=== PATIENT | female | born 1990 | race Hispanic/Latino ===

== ENCOUNTER 2019-01-28 12:07 | Emergency (ER) | payer MEDICAID ==
--- NOTE | 2019-01-28 12:56 | Emergency Department Report ---
Blank Doc - Documentation Documentation: This is a 28-year-old female that presents with chest pain that describes it as a burning sensation. Stated is in the midsternum area. Denies any SOB or radiation. This initial assessment diagnostic orders/clinical plan/treatment(s) is/are subject to change based on patient's health status, clinical progression and re- assessment by fellow clinical providers in the ED. Further treatment and workup at subsequent clinical providers discretion. Patient/guardians urged not to elope from ED s their condition may be serious if not clinically assessed and managed. Initial orders include: 1-patient sent to [facility] for further evaluation and treatment. 2- EKG
[2019-01-28 12:58] VITALS: BP 126/75
--- NOTE | 2019-01-28 16:01 | Emergency Department Report ---
ED Psych HPI - General Chief Complaint: Dyspnea/Respdistress Stated Complaint: ANXIETY Time Seen by Provider: 01/28/19 12:55 Source: patient Mode of arrival: Ambulatory - History of Present Illness Initial Comments: 28-year-old female with history of anxiety who presents to the ED with complaint of anxiety attack. Patient states she experience chest pain, palpitations, shortness of breath, paresthesias. Symptoms now resolved. MD Complaint: other (anxiety) -: This morning History of same: Yes Quality: other (now resolved) Improves With: none Worsens With: none Associated Symptoms: shortness of breath, nausea Treatments Prior to Arrival: none - Related Data Previous Rx's Medication Instructions Recorded Last Taken Type LORazepam [Ativan] 1 mg PO QDAY PRN #3 tab 01/28/19 Unknown Rx Allergies Allergy/AdvReac Type Severity Reaction Status Date / Time No Known Allergies Allergy Verified 01/28/19 12:17 ED Review of Systems ROS: Stated complaint: ANXIETY Other details as noted in HPI Comment: All other systems reviewed and negative Respiratory: shortness of breath Cardiovascular: chest pain, palpitations Gastrointestinal: nausea Neurological: paresthesias Psychiatric: anxiety. denies: auditory hallucinations, visual hallucinations, homicidal thoughts, suicidal thoughts ED Past Medical Hx - Past Medical History Previous Medical History?: Yes Additional medical history: PCOS - Surgical History Past Surgical History?: No - Social History Smoking Status: Current Every Day Smoker Substance Use Type: Alcohol - Medications Home Medications: Home Medications Medication Instructions Recorded Confirmed Last Taken Type LORazepam [Ativan] 1 mg PO QDAY PRN #3 tab 01/28/19 Unknown Rx ED Physical Exam - General Limitations: No Limitations General appearance: alert, in no apparent distress - Head Head exam: Present: atraumatic, normocephalic - Eye Eye exam: Present: normal appearance - ENT ENT exam: Present: mucous membranes moist - Neck Neck exam: Present: normal inspection - Respiratory Respiratory exam: Present: normal lung sounds bilaterally. Absent: respiratory distress - Cardiovascular Cardiovascular Exam: Present: regular rate, normal rhythm - GI/Abdominal GI/Abdominal exam: Present: soft. Absent: distended - Extremities Exam Extremities exam: Present: normal inspection - Neurological Exam Neurological exam: Present: alert, oriented X3, CN II-XII intact. Absent: motor sensory deficit - Psychiatric Psychiatric exam: Present: normal affect, normal mood - Skin Skin exam: Present: warm, dry, intact, normal color. Absent: rash ED Course Vital Signs 01/28/19 12:55 Temperature 98.1 F Pulse Rate 102 H Respiratory 20 Rate Blood Pressure 126/75 O2 Sat by Pulse 99 Oximetry ED Medical Decision Making - EKG Data -: EKG Interpreted by Me EKG shows normal: sinus rhythm, axis, intervals, QRS complexes, ST-T waves Rate: normal - EKG Data Interpretation: no acute changes - Differential Diagnosis anxiety Critical care attestation.: If time is entered above; I have spent that time in minutes in the direct care of this critically ill patient, excluding procedure time. ED Disposition Clinical Impression: Anxiety Disposition: DC-01 TO HOME OR SELFCARE Is pt being admited?: No Condition: Stable Instructions: Anxiety (ED) Prescriptions: LORazepam [Ativan] 1 mg PO QDAY PRN #3 tab PRN Reason: Anxiety Referrals: EDER GOMEZ MD [Primary Care Provider] - 3-5 Days Time of Disposition: 16:00
== END 2019-01-28 16:06 | disposition home or self-care (01) ==
LOC: ED 12:07
DX: F41.9 Anxiety disorder, unspecified (principal); E28.2 Polycystic ovarian syndrome; F17.200 Nicotine dependence, unspecified, uncomplicated
CPT/HCPCS: 93005; 93010; 99282

== ENCOUNTER 2022-07-27 10:56 | Inpatient (IN) | payer MEDICAID ==
--- NOTE | 2022-07-27 11:23 | Emergency Department Report ---
ED General Adult HPI - General Chief complaint: Neuro Symptoms/Deficit Stated complaint: POSSIBLE CVA Time Seen by Provider: 07/27/22 11:13 Source: patient, EMS Mode of arrival: Stretcher Limitations: No Limitations - History of Present Illness Initial comments: 31-year-old female denies medical history or surgical history came in today by EMS with concerns of complete right-sided facial numbness that radiates down to her right arm started at 9:15 to 9:20 while patient was driving. States she went to her doctor's appointment today and s/he instructed her to come to the ER immediately. Patient denies any other symptoms. Patient denies fever chill night sweat dizziness blurred vision lightheadedness headache tinnitus ear pain runny nose sore throat loss of taste or smell chest pain palpitation short of breath cough abdominal pain nausea vomiting diarrhea constipation joint pain muscle pain new rash and heat or cold intolerance. Patient is a smoker. - Related Data Previous Rx's Medication Instructions Recorded Last Taken Type LORazepam [Ativan] 1 mg PO QDAY PRN #3 tab 01/28/19 Unknown Rx Allergies Allergy/AdvReac Type Severity Reaction Status Date / Time No Known Allergies Allergy Verified 07/27/22 11:13 ED Review of Systems ROS: Stated complaint: POSSIBLE CVA Other details as noted in HPI Comment: All other systems reviewed and negative Constitutional: no symptoms reported, see HPI Eyes: as per HPI ENT: as per HPI Respiratory: no symptoms reported Cardiovascular: as per HPI Endocrine: no symptoms reported, see HPI Gastrointestinal: as per HPI Genitourinary: as per HPI Musculoskeletal: as per HPI Skin: as per HPI Neurological: numbness (Complete right facial upper and lower as well as right upper extremity numbness) Hematological/Lymphatic: as per HPI ED Past Medical Hx - Past Medical History Previous Medical History?: No Additional medical history: PCOS - Social History Smoking Status: Current Every Day Smoker Substance Use Type: Alcohol - Medications Home Medications: Home Medications Medication Instructions Recorded Confirmed Last Taken Type LORazepam [Ativan] 1 mg PO QDAY PRN #3 tab 01/28/19 Unknown Rx ED Physical Exam - General Limitations: No Limitations, Other (mentation somewhat foggy/slow) General appearance: alert, in no apparent distress - Head Head exam: Present: atraumatic, normocephalic, normal inspection - Eye Eye exam: Present: normal appearance, PERRL, EOMI Pupils: Present: normal accommodation - ENT ENT exam: Present: normal exam, mucous membranes moist - Neck Neck exam: Present: normal inspection, full ROM - Respiratory Respiratory exam: Present: normal lung sounds bilaterally - Cardiovascular Cardiovascular Exam: Present: regular rate, normal rhythm - GI/Abdominal GI/Abdominal exam: Present: soft - Extremities Exam Extremities exam: Present: normal inspection, full ROM, normal capillary refill - Back Exam Back exam: Present: normal inspection, full ROM - Neurological Exam Neurological exam: Present: alert, oriented X3, CN II-XII intact - Psychiatric Psychiatric exam: Present: normal affect, normal mood - Skin Skin exam: Present: warm, normal color ED Course Vital Signs 07/27/22 11:10 Temperature 98.6 F Pulse Rate 84 Respiratory 14 Rate Blood Pressure 140/92 [Left] O2 Sat by Pulse 98 Oximetry - Reevaluation(s) Reevaluation #1: 07/27/22 12:24 # Assessment Impression: Cognitive fogginess with right face/ arm paresthesia - stroke versus seizure versus migraine aura (acephalgic migraine) # Plan Thrombolytic/Intervention: NOT IV Thrombolysis or IA Intervention candidate Thrombolytic Exclusion (< 3 hour window): family/ patient refusal non-disabling deficit Thrombolytic Exclusion: After discussing the risks & benefits, the patient elected not to pursue thrombolytic therapy. Target Blood Pressure: SBP < 220 Labs: CBC comprehensive metabolic panel ESR hemoglobin A1c lipid panel troponin TSH urine drug screen ua Imaging: (urgency: STAT): CT Angiogram Head and CT Angiogram Neck AND call back with results if abnormal Imaging: (urgency: routine): MRI Brain without contrast Diagnostic Test: echo without bubble study Therapy/Evaluation: NPO until swallow evaluation PT/OT evaluation Medication: Would defer starting medication (aspirin & statin) pending diagnostic results. DVT Prophylaxis: SCD chemical DVT prophylaxis 07/27/22 12:27 PENDING CTA HEAD/NECK. IF ABNORMAL; WILL CALL NEUROLOGIST. IF NORMAL; WILL CALL HOSPITALIST. 12:28PM 07/27/22 13:50 PATIENT REFUSES IV CONTRAST. 07/27/22 13:55 SPOKE TO HOSPITALIST, DR. SEXTON WHO WILL COME AND EVALUATE THE PATIENT. ED Medical Decision Making - Lab Data Result diagrams: 07/27/22 11:42 07/27/22 11:42 Critical care attestation.: If time is entered above; I have spent that time in minutes in the direct care of this critically ill patient, excluding procedure time. ED Disposition Clinical Impression: Right arm numbness, Right facial numbness Disposition: ADMITTED INPATIENT Is pt being admited?: Yes Does the pt Need Aspirin: No Condition: Stable Time of Disposition: 15:19
--- NOTE | 2022-07-27 11:29 | Consultation ---
History of Present Illness Consult date: 07/27/22 History of present illness: [place] Consult Note # Demographics Consult Type: Acute Stroke Level 1 (0-4.5 hrs) Patient Location: Emergency Room First Name: Estela Last Name: Shonda Date of : 1990 Age: 31 Gender: Female Facility: [facility] Time of Initial Page ( Time): 07/27/2022, 11:10 Time of Return Call ( Time): 07/27/2022, 11:10 # HPI Chief Complaint: confusion numbness weakness (focal) History: Patient was at doctor's office around 10:30am, presenting with right- sided tingling/ numbness & fogginess. EMS denied history of seizure disorder, loss of consciousness, unilateral convulsions, mouth trauma or sphincter incontinence. Denied , & patient denied headache, or history of headache/ migraine Last Known Normal: I have collected independent history specific to time last normal or last known well. We have collaborated with the provider and at this time, we have the most current timeline with the information that is available. 9:15am Duration: constant hours Possible Thrombolytic candidate: not on warfarin or NOACs no intracranial hemorrhage history no recent major surgery Associated Symptoms: confusion Quality: numbness pins and needles # Scores Time of exam and NIHSS ( Time): 07/27/2022, 11:12 Level of Consciousness 1a: [0] = Alert; keenly responsive LOC Questions 1b: [0] = Answers both questions correctly LOC Commands 1c: [0] = Performs both tasks correctly Best Gaze 2: [0] = Normal Visual 3: [0] = No visual loss Facial Palsy 4: [0] = Normal symmetrical movements Motor Arm Left 5a: [0] = No drift Motor Arm Right 5b: [0] = No drift Motor Leg Left 6a: [0] = No drift Motor Leg Right 6b: [0] = No drift Limb Ataxia 7: [0] = Absent Sensory 8: [1] = [id number] sensory loss Best Language 9: [0] = No aphasia Dysarthria 10: [0] = Normal Extinction and Inattention 11: [0] = No abnormality NIHSS Total: 1 Modified Claremont Scale (mRS) pre-stroke: [0] = No Symptoms Modified Claremont Scale total: 0 VAN Screening: Negative # Exam SBP: 142 DBP: 92 Mental Status: awake follows commands Language: normal speech Sensory: decreased sensation right face decreased sensation right upper extremity Additional Neurologic Exam: Evaluation limited due to observational assessment. In-person exam may be helpful for more subtle signs that cannot be detected via telemedicine. # PMH-FH-SH Past Medical History: denies Past Surgical History: Tubal ligation Social History: smoker Allergies: NKDA # Data Glucose: [address] personally read by me (Eastern Time): 07/27/2022, 11:[address]: no bleed preliminarily reviewed by me, please refer to radiology read for official reading # Assessment Impression: Cognitive fogginess with right face/ arm paresthesia - stroke versus seizure versus migraine aura (acephalgic migraine) # Plan Thrombolytic/Intervention: NOT IV Thrombolysis or IA Intervention candidate Thrombolytic Exclusion (< 3 hour window): family/ patient refusal non-disabling deficit Thrombolytic Exclusion: After discussing the risks & benefits, the patient elected not to pursue thrombolytic therapy. Target Blood Pressure: SBP < 220 Labs: CBC comprehensive metabolic panel ESR hemoglobin A1c lipid panel troponin TSH urine drug screen ua Imaging: (urgency: STAT): CT Angiogram Head and CT Angiogram Neck AND call back with results if abnormal Imaging: (urgency: routine): MRI Brain without contrast Diagnostic Test: echo without bubble study Therapy/Evaluation: NPO until swallow evaluation PT/OT evaluation Medication: Would defer starting medication (aspirin & statin) pending diagnostic results. DVT Prophylaxis: SCD chemical DVT prophylaxis Other: If patient has any neurological deterioration please call me back immediately permissive hypertension telemetry monitoring would not pursue stroke work-up if MRI is negative I have discussed my recommendations with the referring provider Tobacco cessation counseled. Disposition: admit # Demographics First Name: Estela Last Name: Shonda Facility: [facility] Medications and Allergies Allergies Allergy/AdvReac Type Severity Reaction Status Date / Time No Known Allergies Allergy Verified 07/27/22 11:13 Home Medications Medication Instructions Recorded Confirmed Last Taken Type LORazepam [Ativan] 1 mg PO QDAY PRN #3 tab 01/28/19 Unknown Rx Physical Examination - Vital Signs Vital Signs: Vital Signs Temp Pulse Resp BP Pulse Ox 98.6 F 84 14 140/92 98 07/27/22 11:10 07/27/22 11:10 07/27/22 11:10 07/27/22 11:10 07/27/22 11:10
--- NOTE | 2022-07-27 11:32 | Cat Scan Report ---
CT head/brain wo con INDICATION: R FACIAL/UPPER EXTREMITY NUMBNESS 9:[address] STARTED. TECHNIQUE: CT head. All CT scans at this location are performed using CT dose reduction for ALARA by means of automated exposure control. COMPARISON: None. FINDINGS: Intracranial: Shea-white matter differentiation is maintained. No intracranial hemorrhage. No extra a xial collection. No hydrocephalus. No herniation. Sinuses: Paranasal sinuses and mastoid air cells are essentially clear. Orbits: Globes are intact. Calvarium: No acute fracture. IMPRESSION: 1. No acute stroke identified. No intracranial hemorrhage. Signer Name: Sage Arias MD Signed: 07/27/2022 11:27 AM Workstation Name: [email or web address]
[2022-07-27 11:59] LABS: Hematocrit 36.7 % (30.3-42.9); Hemoglobin 12.3 gm/dl (10.1-14.3); Mean Corpuscular HGB Conc 34 % (30-34); Mean Corpuscular Volume 93 fl (79-97); Platelet Count 202 K/mm3 (140-440); Red Blood Count 3.96 M/mm3 (3.65-5.03); Red Cell Distribution Width 12.7 % (13.2-15.2)
[2022-07-27 12:08] LABS: INR 0.79 (0.87-1.13)
--- NOTE | 2022-07-27 12:13 | XRay Report ---
CHEST 1 VIEW 07/27/2022 11:46 AM INDICATION / CLINICAL INFORMATION: stroke work up. COMPARISON: None available. FINDINGS: SUPPORT DEVICES: None. HEART / MEDIASTINUM: No significant abnormality. LUNGS / PLEURA: No significant pulmonary or pleural abnormality. No pneumothorax. ADDITIONAL FINDINGS: No significant additional findings. IMPRESSION: 1. No acute findings. Signer Name: Luis Eduardo Cordero MD Signed: 07/27/2022 12:08 PM Workstation Name: [email or web address]
[2022-07-27 12:17] LABS: Alanine Aminotransferase 31 units/L (7-56); Albumin 4.4 g/dL (3.9-5); BUN/Creatinine Ratio 14; Blood Urea Nitrogen 11 mg/dL (7-17); Calcium 9.3 mg/dL (8.4-10.2); Hemolysis Index 6
--- NOTE | 2022-07-27 14:56 | Cat Scan Report ---
CT angio neck, CT angio head HISTORY: STROKE WORK UP COMPARISON: CT head same day TECHNIQUE: CTA of the neck and head is performed after IV contrast. 3-D/MIP reformats were postproces sed. Percentage stenosis is determined by direct quantitative measurements of diseased internal bella tid artery diameter compared with normal distal internal carotid artery reference segments or by crit eria similar to NASCET where applicable. All CT scans at this location are performed using CT dose re duction for ALARA by means of automated exposure control. FINDINGS: CTA NECK: Aortic arch: No significant abnormality. Cervical vertebral arteries: Diminutive left vertebral artery with a dominant right vertebral artery, most consistent with congenital variant which is a common finding.. No occlusion or hemodynamically significant stenosis. Common Carotid arteries: No occlusion or hemodynamically significant stenosis. Internal carotid arteries: No occlusion or hemodynamically significant stenosis. CTA HEAD: Intracranial internal carotid arteries: No occlusion or significant stenosis. Anterior cerebral arteries: No occlusion or significant stenosis. Middle cerebral arteries: No occlusion or significant stenosis. Intracranial vertebral arteries: No occlusion or significant stenosis. Basilar artery: No occlusion or significant stenosis. Posterior cerebral arteries: No occlusion or significant stenosis. No aneurysm. Additional findings: None. IMPRESSION: 1. CTA NECK: No occlusion or significant stenosis of the carotid or vertebral arteries. 2. CTA HEAD: No occlusion or significant stenosis of the major intracranial vasculature. Signer Name: Sage Arias MD Signed: 07/27/2022 2:52 PM Workstation Name: [employer]
[2022-07-27 15:14] LABS: Mucus,Urine FEW /HPF
[2022-07-27] MEDS ORDERED: PROMETHAZINE 25 MG RECT SUPP PR PRN (15:21)
[2022-07-27] MEDS ORDERED: MAGNESIUM HYDROXIDE (MOM) ORAL LIQD UDC PO PRN (15:21)
[2022-07-27] MEDS ORDERED: HYDROmorphone 0.5 MG/0.5 ML INJ IV PRN (15:21)
[2022-07-27] MEDS ORDERED: oxyCODONE /ACETAMINOPHEN 5-325MG TAB PO PRN (15:21)
[2022-07-27] MEDS ORDERED: METOCLOPRAMIDE 10 MG TAB PO PRN (15:21)
[2022-07-27] MEDS ORDERED: ACETAMINOPHEN 325 MG TAB PO PRN (15:21)
[2022-07-27] MEDS ORDERED: ONDANSETRON 4 MG/2 ML INJ IV PRN (15:21)
[2022-07-27 15:23] LABS: Color,Urine Straw (Yellow)
--- NOTE | 2022-07-27 15:23 | History and Physical Report ---
History of Present Illness Chief complaint: I feel weak on the right side History of present illness: 31 YO Female with Obesity, EMERALD, Nicotine Dependence presents to ED for evaluation. Patient states "my right side got numb". Patient states that while she was driving today she experienced a sudden onset of right arm and leg and face numbness. Patient states that she presented to her primary care physician's office who recommended further care and evaluation. EMS was notified and upon arrival the patient was found to be in distress with a focal neurologic deficit. A code stroke was called and the patient was transported to [facility] for further care and evaluation of the aforementioned symptoms. The patient was seen and evaluated in the emergency department. All lab and imaging studies reviewed. Patient found to have a focal neurologic deficit and initiated on CVA protocol. Patient admitted to medical floor and initiated on CVA protocol. Teleneurology consulted. Patient denies fever, chills, chest pain, palpitation, productive cough, skin rash, recent contact, known exposure to COVID-19. No prior admission for review. No medication listed at time of admission for reconciliation. Advanced care planning conducted in ED. Past History Past Medical History: other (See HPI) Past Surgical History: No surgical history, Other (Reviewed) Social history: single, smoking Family history: hypertension Medications and Allergies Allergies Allergy/AdvReac Type Severity Reaction Status Date / Time No Known Allergies Allergy Verified 07/27/22 11:13 Home Medications Medication Instructions Recorded Confirmed Last Taken Type LORazepam [Ativan] 1 mg PO QDAY PRN #3 tab 01/28/19 Unknown Rx Review of Systems Constitutional: no weight loss Ears, nose, mouth and throat: no ear pain, no tinnitis, no decreased hearing Cardiovascular: no chest pain, no edema, no syncope Respiratory: no cough, no dyspnea on exertion Gastrointestinal: no abdominal pain, no nausea, no diarrhea, no change in bowel habits Genitourinary Female: no pelvic pain, no flank pain, no dysuria, no urinary frequency, no urgency Rectal: no pain, no incontinence, no bleeding Musculoskeletal: no neck stiffness, no neck pain, no shooting arm pain, no arm numbness/tingling, no shooting leg pain Integumentary: no rash, no redness, no wounds, no jaundice Neurological: weakness, change in speech, no gait dysfunction, no motor disturbance Psychiatric: no memory loss, no sleep disturbances, no insomnia, no hypersomnia, no change in libido, no suicidal ideation Endocrine: no cold intolerance, no polyphagia, no polyuria, no excessive sweating Hematologic/Lymphatic: no easy bruising, no easy bleeding, no lymphadenopathy Allergic/Immunologic: no urticaria, no allergic rhinitis, no persistent infections Exam - Constitutional Vitals: Temp Pulse Resp BP Pulse Ox 98.6 F 84 14 140/92 98 07/27/22 11:10 07/27/22 11:10 07/27/22 11:10 07/27/22 11:10 07/27/22 11:10 General appearance: Present: mild distress, obese - EENT Eyes: Present: PERRL ENT: hearing intact, clear oral mucosa - Neck Neck: Present: supple, normal ROM - Respiratory Respiratory effort: normal Respiratory: bilateral: CTA - Cardiovascular Heart Sounds: Present: S1 & S2. Absent: rub, click - Extremities Extremities: pulses symmetrical, No edema Peripheral Pulses: within normal limits - Abdominal General gastrointestinal: Present: soft, non-tender, non-distended, normal bowel sounds Female genitourinary: Present: normal - Integumentary Integumentary: Present: clear, warm, dry - Musculoskeletal Musculoskeletal: right sided weakness - Psychiatric Psychiatric: appropriate mood/affect, intact judgment & insight - Neurologic Neurologic: CNII-XII intact, moves all extremities HEART Score - HEART Score Troponin: Troponin T < 0.010 ng/mL (0.00-0.029) 07/27/22 12:29 Results - Labs CBC & Chem 7: 07/27/22 11:42 07/27/22 11:42 Labs: Abnormal lab results 07/27/22 07/27/22 07/27/22 Range/Units 11:42 11:42 11:42 RDW 12.7 L (13.2-15.2) % PT 12.0 L (12.2-14.9) Sec. INR 0.79 L (0.87-1.13) Glucose 108 H (65-100) mg/dL Assessment and Plan - Patient Problems (1) CVA (cerebral vascular accident) Current Visit: Yes Status: Acute Plan to address problem: CVA protocol: CT head, neuro check, seizure precaution, aspiration precaution, physical therapy consult, outpatient therapy consulted, speech therapy consulted, carotid Doppler, ultrasound, lipid panel, statin therapy, antiplatelet therapy. Teleneurology consulted. (2) Right hemiparesis Current Visit: Yes Status: Acute Plan to address problem: Physical therapy consulted, supportive care. (3) Obesity hypoventilation syndrome Current Visit: Yes Status: Acute Plan to address problem: Balanced diet, increase physical activity discharge, outpatient pulmonary follow-up for sleep study. (4) Nicotine dependence Current Visit: Yes Status: Acute Qualifiers: Nicotine product type: cigarettes Substance use status: in withdrawal Qualified Code(s): F17.213 - Nicotine dependence, cigarettes, with withdrawal Plan to address problem: Smoke cessation counseling, supportive care, +15 minutes. (5) DVT prophylaxis Current Visit: Yes Status: Acute Plan to address problem: SCD to bilateral lower extremities while in bed (6) Advance care planning Current Visit: Yes Status: Acute Plan to address problem: Disease education data, care plan discussed, diagnoses discussed, prognosis discussed, patient is full code. Patient acknowledges understanding and agreement with care plan, +30 minutes.
--- NOTE | 2022-07-27 16:29 | Vascular Lab Report ---
"DUPLEX DOPPLER ULTRASOUND CAROTID, BILATERAL INDICATION / CLINICAL INFORMATION: stroke. COMPARISON: None available. FINDINGS: RIGHT CAROTID: - PLAQUE ESTIMATE (%): < 50% - CCA velocity: 101 cm/sec. - ICA peak systolic velocity: 90 cm/sec. - ICA/CCA PSV Ratio: 0.89 Right Vertebral Artery: Antegrade flow. LEFT CAROTID: - PLAQUE ESTIMATE: < 50% - CCA velocity: 94 cm/sec. - ICA peak systolic velocity: 82 cm/sec. - ICA/CCA PSV Ratio: 0.9 Left Vertebral Artery: Antegrade flow. IMPRESSION: 1. Right Internal Carotid Artery: Less than 50% diameter stenosis. 2. Left Internal Carotid Artery: Less than 50% diameter stenosis. Velocity criteria are extrapolated from diameter data as defined by the Society of Radiologists [place] [facility] Consensus Conference, Radiology 2003; 229;[id number]. Degree of || ICA PSV || Plaque || ICA/CCA Stenosis (%) || (cm/sec) || estimate (%) || PSV Ratio Normal ............. || ...<125........... || ...None......... || ...<2.0 <50................... || ...<125........... || ......<50......... || ...<2.0 50-69................ || ..125-230...... || ......>50......... || 2.0-4.0 >70 but <100... || >230.............. || .......>50........ || ...>4.0 Near occlusion || High/low/none || ...visible....... || variable Total occlusion || ....None........... || ..no lumen... || ....N/A Signer Name: Edy Lopez MD Signed: 07/27/2022 4:25 PM Workstation Name: [id number]
[2022-07-27] MEDS ORDERED: ALUM-MAG HYDROXIDE-SIMETHICONE 200-200-20MG/5ML ORAL LIQD 30 ML PO PRN (21:38)
[2022-07-28] MEDS: ASPIRIN 325 MG TAB PO SCH (09:24)
--- NOTE | 2022-07-28 17:41 | Electrocardiograph Report ---
[facility] Test Date: 2022-07-28 Test Time: 11:22:07 Pat Name: JAMISON OCHOA Department: Room: A386 1 Gender: F Charge Account Authorizer: RONIT : 1990 Requested By: SHANA CALERO Order Number: [id number] Reading MD: Caprice Thao Measurements Intervals [place] Rate: 70 P: 31 RI: 148 QRS: 53 QRSD: 81 T: 39 QT: 385 QTc: 415 Interpretive Statements Sinus rhythm No previous ECG available for comparison Electronically Signed On 07-28-2022 17:41:13 EDT by Caprice Thao
--- NOTE | 2022-07-28 23:49 | Progress Note ---
Assessment and Plan (1) CVA (cerebral vascular accident) vs migraine headache with RUE numbness Current Visit: Yes Status: Acute Plan to address problem: CVA protocol: CT head, neuro check, seizure precaution, aspiration precaution, physical therapy consult, outpatient therapy consulted, speech therapy consulted, carotid Doppler, ultrasound, lipid panel, statin therapy, antiplatelet therapy. Teleneurology consulted. (2) Right UE numbness Current Visit: Yes Status: Acute Plan to address problem: Physical therapy consulted, supportive care. (3) Obesity hypoventilation syndrome Current Visit: Yes Status: Acute Plan to address problem: Balanced diet, increase physical activity discharge, outpatient pulmonary follow-up for sleep study. (4) Nicotine dependence Current Visit: Yes Status: Acute Qualifiers: Nicotine product type: cigarettes Substance use status: in withdrawal Qualified Code(s): F17.213 - Nicotine dependence, cigarettes, with withdrawal Plan to address problem: Smoke cessation counseling, supportive care, +15 minutes. (5) DVT prophylaxis Current Visit: Yes Status: Acute Plan to address problem: SCD to bilateral lower extremities while in bed (6) Advance care planning Current Visit: Yes Status: Acute Plan to address problem: Disease education data, care plan discussed, diagnoses discussed, prognosis discussed, patient is full code. Patient acknowledges understanding and agreement with care plan, +30 minutes. Subjective Date of service: 07/28/22 Objective - Constitutional Vitals: Vital Signs - 12hr 07/28/22 16:00 Temperature 98 F Pulse Rate 86 Respiratory 18 Rate Blood Pressure 107/67 [Left] O2 Sat by Pulse 98 Oximetry - Labs CBC & Chem 7: 07/27/22 11:42 07/27/22 11:42 HEART Score - HEART Score Troponin: Troponin T < 0.010 ng/mL (0.00-0.029) 07/27/22 12:29
[2022-07-29] MEDS: ASPIRIN 325 MG TAB PO SCH (10:35)
[2022-07-29 10:41] VITALS: BP 127/70
--- NOTE | 2022-07-29 10:58 | Magnetic Resonance Report ---
MRI BRAIN WITHOUT CONTRAST INDICATION / CLINICAL INFORMATION: right side weakness/numbness. TECHNIQUE: Multiplanar, multisequence MR images of the brain were obtained. COMPARISON: Head CT on 07/27/2022 FINDINGS: BRAIN / INTRACRANIAL CONTENTS: No acute ischemia, acute hemorrhage, mass effect, midline shift, or hy drocephalus. No chronic infarct or significant atrophy. No significant demyelinating changes. CRANIOCERVICAL JUNCTION: No significant abnormality. VASCULAR FLOW-VOIDS: No significant abnormality. ORBITS: No significant abnormality of visualized orbits. SINUSES / MASTOIDS: No significant abnormality of visualized sinuses and mastoid air cells. ADDITIONAL FINDINGS: None. IMPRESSION: 1. No acute findings. Brain appears normal for age. Signer Name: Edy Lopez MD Signed: 07/29/2022 10:54 AM Workstation Name: [id number]
[2022-07-29] MEDS ORDERED: DIPHENHYDRAMINE CIT PO PRN (11:37)
[2022-07-29] MEDS ORDERED: IBUPROFEN PO PRN (11:37)
--- NOTE | 2022-07-29 11:54 | Discharge Summary ---
Providers - Providers Date of Admission: 07/27/22 15:21 Date of discharge: 07/29/22 Attending physician: SHANA CALERO 07/27/22 15:21 Occupational Therapy Evaluate and Treat [CONS] Routine Comment: Reason For Exam: Neuro deficits Physical Therapy Evaluation and Treat [CONS] Routine Comment: Reason For Exam: Neuro deficits 07/27/22 15:22 Speech Therapy Evaluation and Treat [CONS] Routine Reason For Exam: swallow eval 07/29/22 09:41 Consult to Physician [CONS] Routine Comment: Consulting Provider: GUY ROSALES Physician Instructions: Reason For Exam: headache with right sided numbness Primary care physician: BLOCK PLACER Hospitalization Condition: Stable Disposition: 01 HOME / SELF CARE / HOMELESS Time spent for discharge: 34 minutes Core Measure Documentation - Palliative Care Palliative Care/ Comfort Measures: Not Applicable - Core Measures Any of the following diagnoses?: none Exam - Constitutional Vitals: Temp Pulse Resp BP Pulse Ox 98.0 F 98 H 18 127/70 95 07/29/22 10:39 07/29/22 10:39 07/29/22 10:39 07/29/22 10:39 07/29/22 10:39 Plan Activity: advance as tolerated Weight Bearing Status: Weight Bear as Tolerated Diet: low fat, low salt Special Instructions: record daily weights Follow up with: PRIMARY CARE, [Primary Care Provider] - 3-5 Days Prescriptions: Pantoprazole [Protonix] 40 mg PO QDAY #30 tablet
--- NOTE | 2022-07-30 09:29 | Electrocardiograph Report ---
[facility] Test Date: 2022-07-27 Test Time: 14:46:25 Pat Name: JAMISON OCHOA Department: Room: A386 1 Gender: F Tester Vibrator Equipment: LAKISHA : 1990 Requested By: EUGENIO DEVRIES Order Number: [id number] Reading MD: Charles Tilley Measurements Intervals [place] Rate: 83 P: 59 [place]: 141 QRS: 41 QRSD: 78 T: 30 QT: 379 QTc: 445 Interpretive Statements Sinus rhythm No previous ECG available for comparison NSST'S Electronically Signed On 07-30-2022 9:29:22 EDT by Charles Tilley
[2022-07-30] MEDS ORDERED: CIMETIDINE 200 MG PO SCH (10:00)
[2022-08-05] MEDS ORDERED: NON-FORMULARY EACH (Cholecalciferol (Vitamin D3) [Vitamin D3 50,000unit Cap] 1,250 MCG Cap PO SCH (10:00)
== END 2022-07-29 18:30 | disposition home or self-care (01) | DRG 65 ==
LOC: ED 10:56 → 3A 15:21
PROVIDERS: ADMIT Internal Medicine; ATTEND Internal Medicine
DX: I63.9 Cerebral infarction, unspecified (principal); E66.2 Morbid (severe) obesity with alveolar hypoventilation; F17.213 Nicotine dependence, cigarettes, with withdrawal; G81.91 Hemiplegia, unspecified affecting right dominant side; F41.1 Generalized anxiety disorder; Z82.49 Family history of ischemic heart disease and other diseases of the circulatory system; Z68.37 Body mass index [BMI] 37.0-37.9, adult
CPT/HCPCS: 36415; 70450; 70496; 70498; 70551; 71045; 80053; 80320; 81001; 83735; 84443; 84484; 85027; 85610; 85652; 85730; 93005; 93306; 93880; 99285; 99406; G0378; C8929; G0480; Q9967